=== PATIENT | female | born 1940 | race Caucasian/White ===

== ENCOUNTER 2016-09-26 17:37 | Emergency (ER) | payer OTHER ==
--- NOTE | 2016-09-26 17:55 | UCPHY ---
H & P Time Seen by Provider: 09/26/16 17:45 Patient Type: Established HPI/ROS: Chief complaint. Vomiting, diarrhea HPI. 68-year-old female with history of anxiety presents with vomiting and diarrhea that started this morning. She was seen in the [facility] on Thursday for anxiety. In the part of the workup it was found that she had a urinary tract infection. She was started on cephalexin. This morning she began have some vomiting and some diarrhea. No blood in the stool. No fever. Denies abdominal pain. Otherwise no recent travel or known exposures. ROS Constitutional. no fever/chills, no weakness Eyes. no problems with vision ENT. no sore throat, no nasal drainage Cardiovascular. no chest pain Respiratory. no shortness of breath, no cough Abdominal. No abdominal pain but vomiting and diarrhea today . no problems urinating MS. no calf pain/swelling, no neck/back pain, no joint pain Skin. no rash Lymph. no swollen glands Neuro. headache, no dizziness, no difficulty walking or with speech Past Medical/Surgical History: Anxiety, depression Social History: , nonsmoker, no alcohol Physical Exam: General Appearance: Alert well-developed female mild distress. Vital signs are stable Eyes: Pupils equal and round no pallor or injection. ENT, mucous membranes slightly dry Respiratory: There are no retractions, lungs are clear to auscultation. Cardiovascular: Regular rate and rhythm. Gastrointestinal: Abdomen is soft and nontender, no masses, bowel sounds normal. Neurological: Awake and alert, sensory and motor exams grossly normal. Skin: Warm and dry, no rashes. Musculoskeletal: Neck is supple nontender. Extremities symmetrical, full range of motion. Psychiatric: Patient is oriented X 3, there is no agitation. Constitutional: Initial Vital Signs Temperature (C) 37.5 C 09/26/16 17:50 Heart Rate 96 09/26/16 17:50 Respiratory Rate 16 09/26/16 17:50 Blood Pressure 137/78 H 09/26/16 17:50 O2 Sat (%) 94 09/26/16 17:50 O2 Delivery Mode Room Air Allergies/Adverse Reactions: No Known Allergies Allergy (Unverified 11/08/12 08:29) Home Medications: Medication Instructions Recorded ALPRAZolam 09/26/16 CEPHALEXIN 09/26/16 Donepezil HCl 09/26/16 Promethazine HCl [Phenergan 25mg 25 mg PO Q4-6PRN PRN #6 tab 09/26/16 (*)] QUEtiapine FUMARATE [Seroquel 25 09/26/16 mg (*)] Venlafaxine 37.5MG (*) 09/26/16 Medical Decision Making Procedures: IV normal saline. Zofran for nausea and vomiting. Imodium for diarrhea. Tylenol for headache ED Course/Re-evaluation: Re-evaluation 6:55 p.m.. Patient is stable. She will give us a urine sample when she is able Re-evaluation again at 8:30 a.m.. Patient is drinking fluids. Eating Uvaldo cracker. She has no abdominal pain or complaints. No longer having any nausea vomiting. She was unable to give us a stool sample as she is no longer having diarrhea Differential Diagnosis: This could be vomiting diarrhea type illness. I considered C difficile as well. I considered sources of acute abdominal pain however the patient has no abdominal pain. She does have an elevated white count which certainly could be consistent with a gastroenteritis type picture especially as the patient does not have any abdominal pain. I considered dehydration as well as electrolyte abnormalities - Data Points Laboratory Results: Laboratory Results 09/26/16 18:15 09/26/16 18:15 09/26/16 09/26/16 19:50 18:15 WBC 20.18 H 10^3/uL (3.80-9.50) RBC 4.35 10^6/uL (4.18-5.33) Hgb 14.4 g/dL (12.6-16.3) Hct 41.7 % (38.0-47.0) MCV 95.9 fL (81.5-99.8) MCH 33.1 pg (27.9-34.1) MCHC 34.5 g/dL (32.4-36.7) RDW 12.6 % (11.5-15.2) Plt Count 276 10^3/uL (150-400) MPV 9.8 fL (8.7-11.7) Neut % (Auto) 93.5 H % (39.3-74.2) Lymph % (Auto) 1.8 L % (15.0-45.0) Hoke % (Auto) 4.2 L % (4.5-13.0) Eos % (Auto) 0.0 L % (0.6-7.6) Baso % (Auto) 0.1 L % (0.3-1.7) Nucleat RBC Rel Count 0.0 % (0.0-0.2) Absolute Neuts (auto) 18.87 H 10^3/uL (1.70-6.50) Absolute Lymphs (auto) 0.36 L 10^3/uL (1.00-3.00) Absolute Monos (auto) 0.84 H 10^3/uL (0.30-0.80) Absolute Eos (auto) 0.00 L 10^3/uL (0.03-0.40) Absolute Basos (auto) 0.02 10^3/uL (0.02-0.10) Absolute Nucleated RBC 0.00 10^3/uL (0-0.01) Immature Gran % 0.4 % (0.0-1.1) Immature Gran # 0.09 10^3/uL (0.00-0.10) Sodium 139 mEq/L (134-144) Potassium 3.9 mEq/L (3.5-5.2) Chloride 103 mEq/L (97-110) Carbon Dioxide 25 mEq/l (22-31) Anion Gap 11 mEq/L (8-16) BUN 20 mg/dL (7-23) Creatinine 0.8 mg/dL (0.6-1.0) Estimated GFR > 60 Glucose 171 H mg/dL (70-100) Calcium 9.2 mg/dL (8.5-10.4) Urine Color YELLOW Urine Appearance CLEAR Urine pH 5.5 (5.0-7.5) Ur Specific [place] 1.025 (1.002-1.030) Urine Protein TRACE H (NEGATIVE) Urine Ketones 1+ H (NEGATIVE) Urine Blood 3+ H (NEGATIVE) Urine Nitrate NEGATIVE (NEGATIVE) Urine Bilirubin NEGATIVE (NEGATIVE) Urine Urobilinogen 0.2 EU (0.2-1.0) Ur Leukocyte Esterase NEGATIVE (NEGATIVE) Urine RBC 15-25 H /hpf (0-3) Urine WBC 0-1 /hpf (0-3) Ur Epithelial Cells TRACE /lpf (NONE-1+) Amorphous Sediment 2+ H /hpf (NONE-1+) Hyaline Casts 0-1 /lpf (0-1) Urine Mucus 2+ H /lpf (NONE-1+) Ur Culture Indicated? NOT INDICATED (NI) Urine Glucose NEGATIVE (NEGATIVE) Medications Given: Discontinued Medications Acetaminophen (Tylenol) 650 mg PO EDNOW ONE Stop: 09/26/16 18:09 Last Admin: 09/26/16 18:27 Dose: 650 mg Sodium Chloride (Ns) 1,000 mls @ 0 mls/hr IV ONCE ONE PRN Reason: Wide Open Stop: 09/26/16 18:05 Last Admin: 09/26/16 18:27 Dose: 1,000 mls Loperamide HCl (Imodium) 4 mg PO EDNOW ONE Stop: 09/26/16 18:05 Last Admin: 09/26/16 18:26 Dose: 4 mg Ondansetron HCl (Zofran) 4 mg IVP EDNOW ONE Stop: 09/26/16 18:05 Last Admin: 09/26/16 18:27 Dose: 4 mg Departure - Departure Disposition: Home, Routine, Self-Care Clinical Impression: Vomiting and diarrhea Condition: Good Instructions: Acute Nausea and Vomiting (ED), Loperamide (By mouth), Acute Diarrhea (ED) Additional Instructions: Frequent, small sips fluids well nauseated. Gradual diet advancement. Zofran if needed for nausea and vomiting. Imodium (loperamide) if needed for diarrhea. Return for fever, abdominal pain, blood in vomitus or stool. Recheck in 2-3 days if not improved Referrals: ANGEL HALL [Primary Care Provider] - 2-3 days, if not improved Prescriptions: Promethazine HCl [Phenergan 25mg (*)] 25 mg PO Q4-6PRN PRN #6 tab PRN Reason: Nausea/Vomiting, Use 1st - PQRS PQRS Measurement: 134: Depression screening and followup, PRIME MD-PHQ2 (12 years and older) Over the last 2 weeks, how often have you been bothered by any of the following problems? 1. Feeling down, depressed, or hopeless? 2. Little interest or pleasure in doing things? Patient answered no to both 1 and 2 130: Documentation of medications. Reviewed all patient medications, doses, route and frequency. 226: Do you smoke? No. 47: 65 and older: Advanced care planning. Patient designates surrogate decision maker as spouse .
[2016-09-26] MEDS ORDERED: ONDANSETRON 4 MG/2 ML VIAL IVP ONE (18:04)
[2016-09-26] MEDS ORDERED: NS 1,000 ML IV ONE (18:04)
[2016-09-26] MEDS ORDERED: LOPERAMIDE HCL 2 MG CAP PO ONE (18:04)
[2016-09-26 18:08] VITALS: RESP 16
[2016-09-26] MEDS ORDERED: ACETAMINOPHEN 325 MG TAB PO ONE (18:08)
[2016-09-26 18:20] LABS: % IMMATURE GRANULYOCYTES 0.4 % (0.0-1.1); ABSOLUTE IMMATURE GRANULOCYTES 0.09 10^3/uL (0.00-0.10); ADD DIFF? NO; ADD MORPH? NO; ADD SCAN? NO; ATYPICAL LYMPHOCYTE FLAG 0 (0-99); FRAGMENT RBC FLAG 0 (0-99); HEMATOCRIT 41.7 % (38.0-47.0); HEMOGLOBIN 14.4 g/dL (12.6-16.3); LEFT SHIFT FLG 30 (0-99); LIPEMIA HEMOLYSIS FLAG 90 (0-99); MEAN CELL HEMOGLOBIN 33.1 pg (27.9-34.1); MEAN CELL HEMOGLOBIN CONCENTR. 34.5 g/dL (32.4-36.7); MEAN CELL VOLUME 95.9 fL (81.5-99.8); MEAN PLATELET VOLUME 9.8 fL (8.7-11.7); PLATELET CLUMPS FLAG 0 (0-99); PLATELET COUNT 276 10^3/uL (150-400); RED BLOOD CELL COUNT 4.35 10^6/uL (4.18-5.33); RED CELL DISTRIBUTION WIDTH 12.6 % (11.5-15.2)
[2016-09-26 18:34] LABS: ANION GAP 11 mEq/L (8-16); CALCIUM 9.2 mg/dL (8.5-10.4); CARBON DIOXIDE 25 mEq/l (22-31); CHLORIDE 103 mEq/L (97-110); CREATININE 0.8 mg/dL (0.6-1.0); GLOMERULAR FILTRATION RATE > 60; GLUCOSE 171 mg/dL (70-100); POTASSIUM 3.9 mEq/L (3.5-5.2); SODIUM 139 mEq/L (134-144)
[2016-09-26 19:54] LABS: COLOR YELLOW; LEUKOCYTE ESTERASE,URINE NEGATIVE (NEGATIVE); NITRITE,URINE NEGATIVE (NEGATIVE); PH,URINE 5.5 (5.0-7.5)
[2016-09-26 20:11] LABS: WBC,URINE 0-1 /hpf (0-3)
[2016-09-26 20:12] LABS: AMORPHOUS 2+ /hpf (NONE-1+); HYALINE CASTS 0-1 /lpf (0-1); MUCUS 2+ /lpf (NONE-1+); RBC,URINE 15-25 /hpf (0-3)
[2016-09-26] MEDS ORDERED: ONDANSETRON 4MG PREPACK#2 BTL TAKEHOME ONE (20:37)
[2016-09-26 20:47] VITALS: BP 92/58; PULSE 100; TEMP 99.9; O2SAT 91
== END 2016-09-26 21:00 | disposition home or self-care (01) ==
LOC: CED 17:37
DX: R11.10 Vomiting, unspecified (principal); R19.7 Diarrhea, unspecified
CPT/HCPCS: 96361; 96374; G0463; J2405; 80048-PO; 81003-PO; 81015-PO; 85025-PO; 99215-PO